=== PATIENT | female | born 1970 | race Caucasian/White ===

== ENCOUNTER 2019-11-30 07:08 | Day surgery (SDC) | payer MEDICAID, SELFPAY ==
[~2019-11-30] VITALS: Ht 157.5 cm; Wt 117.9 kg
[2019-11-30] MEDS ORDERED: SIMETHICONE 40 MG/0.6 ML ML ONE (08:01)
[2019-11-30] MEDS ORDERED: MIDAZOLAM HCL 5 MG/5 ML VIAL ONE (08:01)
[2019-11-30 08:58] LABS: HCG,QUAL RESULT NEGATIVE (NEGATIVE)
[2019-11-30] MEDS: fentaNYL CITRATE/PF 100 MCG/2 ML AMP ONE ×2 (12:29→12:31)
[2019-11-30 16:31] VITALS: BP_SYST 176
== END 2019-11-30 14:20 | disposition home or self-care (01) ==
LOC: SMU 07:08 → SDS 07:08
PROVIDERS: ATTEND Internal Medicine
DX: K62.5 Hemorrhage of anus and rectum (principal); J45.909 Unspecified asthma, uncomplicated; E11.9 Type 2 diabetes mellitus without complications; K76.0 Fatty (change of) liver, not elsewhere classified; I10 Essential (primary) hypertension; Z79.899 Other long term (current) drug therapy; Z88.5 Allergy status to narcotic agent; Z88.8 Allergy status to other drugs, medicaments and biological substances; Z20.828 Contact with and (suspected) exposure to other viral communicable diseases
CPT/HCPCS: 45378; 82962; 84703; 99152; G0378; J2250; J3010; J7030; J7120; U0003

== ENCOUNTER 2019-12-01 04:50 | Emergency (ER) | payer MEDICAID, SELFPAY ==
[~2019-12-01] VITALS: Ht 157.5 cm; Wt 118.4 kg
[2019-12-01 06:05] VITALS: BP_SYST 175
--- NOTE | 2019-12-01 06:05 | NUR ---
Placed in room 4 . Placed on cardiac cath lab radiology technologist, blood pressure machine and pulse oximeter. To gown for exam. Side rails up.
--- NOTE | 2019-12-01 06:09 | NUR ---
ER at bedside examining patient.
--- NOTE | 2019-12-01 06:10 | NUR ---
Pt presents to the ER c/o dizziness x yesterday at 2pm. Pt states having a colonoscopy done yesterday and feeling dizziness. HX of HTN, DM, ASTHMA, and bipolar. . Denies CP, N/V/D, sick contacts.
[2019-12-01 06:30] LABS: BASOPHILS % (AUTO) 0.4 % (0.0-2.0); EOSINOPHILS # (AUTO) 0.2 K/uL (0.0-0.4); EOSINOPHILS % (AUTO) 2.6 % (0.0-4.0); LYMPHOCYTES % (AUTO) 33.5 % (20.5-51.5); MEAN CORPUSCULAR HEMOGLOBIN 28 pg (27-31); MEAN CORPUSCULAR HGB CONC 33 % (32-36); MEAN CORPUSCULAR VOLUME 83 fL (79.0-98.0); MONOCYTES # (AUTO) 0.5 K/uL (0.0-1.0); MONOCYTES % (AUTO) 5.2 % (1.7-9.3); NEUTROPHILS # (AUTO) 5.1 K/uL (1.8-7.7); NEUTROPHILS % (AUTO) 58.3 % (40.0-70.0); PLATELET COUNT (AUTO) 266 K/uL (130-430); RED BLOOD CELL COUNT(AUTO) 4.36 MIL/uL (4.2-6.2); RED CELL DISTRIBUTION WIDTH 18.4 % (9.0-15.0); WHITE BLOOD COUNT (AUTO) 8.8 K/uL (4.8-10.8)
[2019-12-01] MEDS ORDERED: MECLIZINE HCL 25 MG TABLET (ANITVERT) PO ONE (06:30)
[2019-12-01 06:46] LABS: ALBUMIN 3.6 g/dL (3.4-4.8); CREATININE 0.63 mg/dL (0.55-1.30); POTASSIUM 3.5 mmol/L (3.5-5.1); TOTAL BILIRUBIN 0.3 mg/dL (0.0-1.0)
[2019-12-01 06:58] LABS: BILIRUBIN,URINE NEGATIVE (NEGATIVE); CLARITY/URINE CLEAR (CLEAR); COLOR,URINE YELLOW (YELLOW); GLUCOSE,URINE NEGATIVE (NEGATIVE); KETONES,URINE NEGATIVE (NEGATIVE); LEUKOCYTE ESTERASE ,URINE NEGATIVE (NEGATIVE); NITRITE, URINE NEGATIVE (NEGATIVE); PH,URINE 7.5 (5.0-8.0); PROTEIN URINE NEGATIVE (NEGATIVE); UROBILINOGEN,URINE 0.2 (0.2-1.0)
[2019-12-01 06:58] LABS: CALCIUM 8.8 mg/dL (8.4-11.0)
[2019-12-01 07:00] LABS: BLOOD, URINE TRACE (NEGATIVE)
--- NOTE | 2019-12-01 07:07 | NUR ---
Pt is reporting fall x yesterday. Pt states falling off her bed. Denies LOC.
[2019-12-01 07:09] LABS: BACTERIA,URINE FEW /HPF (None Seen); RBC,URINE 0-3 /HPF (0-3); WBC,URINE 0-3 /HPF (0-3)
[2019-12-01 07:10] LABS: MUCUS,URINE 1+ /LPF (None Seen); URINE AMORPHOUS PHOSPHATES 1+ /HPF (None Seen)
--- NOTE | 2019-12-01 07:34 | NUR ---
Pt in [facility] with side rails up. Alert and oriented. No distress noted.
--- NOTE | 2019-12-01 07:57 | NUR ---
Patient given written and verbal discharge instructions and verbalizes understanding. ER MD discussed with patient the results and treatment provided. Patient in stable condition. ID arm band removed. IV catheter removed intact and dressing applied, no active bleeding. Rx of antivert given. Patient educated on pain management and to follow up with PMD. Pain Scale 0/10. Opportunity for questions provided and answered. Medication side effect fact sheet provided.
[2019-12-01 07:58] VITALS: BP_SYST 178
== END 2019-12-01 07:58 | disposition home or self-care (01) ==
LOC: SED 04:50
DX: H81.10 Benign paroxysmal vertigo, unspecified ear (principal); Z88.5 Allergy status to narcotic agent; Z91.018 Allergy to other foods
CPT/HCPCS: 36415; 70450; 80053; 81000; 81025; 83690; 85025; 93005; 99285; J8597